=== PATIENT | male | born 1995 | race Caucasian/White ===

== ENCOUNTER 2016-09-19 18:18 | Emergency (ER) | payer BC ==
[2016-09-19 18:24] VITALS: BP 142/72; PULSE 97; RESP 16; TEMP 98.2
[2016-09-19] MEDS ORDERED: KETOROLAC 30 MG/ML 1 ML VIAL IVP STA (20:36)
[2016-09-19] MEDS ORDERED: SODIUM CHLORIDE 0.9% 1,000 ML IV STA (20:36)
[2016-09-19 21:22] LABS: Basophils # (A) 0.1 k/uL (0-0.2); Basophils % (A) 1 %; CH 29.5; CHCM 34.4; Eosinophils # (A) 0.3 k/uL (0-0.7); Eosinophils % (A) 3 %; HCT 51.1 % (39.0-53.0); HDW 2.61; HGB 17.1 gm/dL (13.0-17.5); Luc # (Auto) 0.25; Luc % (Auto) 2; Lymphocytes # (A) 2.8 k/uL (1.0-4.8); Lymphocytes % (A) 26 %; MCH 28.7 pg (25.0-35.0); MCHC 33.4 g/dL (31.0-37.0); Mean Platelet Volume 7.3; Monocytes # (A) 0.7 k/uL (0-1.0); Monocytes % (A) 7 %; Neutrophils # (A) 6.8 k/uL (1.3-7.7); Neutrophils % (A) 62 %; RBC 5.95 m/uL (4.30-5.90); WBC (Perox) 9.95
--- NOTE | 2016-09-19 21:34 | ED ---
Chest Pain HPI - General Chief Complaint: Chest Pain Stated Complaint: Chest Pain Time Seen by Provider: 09/19/16 20:28 Source: patient, RN notes reviewed, old records reviewed Mode of arrival: wheelchair Limitations: no limitations - History of Present Illness Initial Comments: Is 21-year-old male presents emergency Department with chief complaint of epigastric and lateral chest pain that will go off and on for the past 3 days. Patient states that he was evaluated by work and had EKG which showed abnormal heartbeat. Patient states that the pain will come and go. Patient states that the pain is unrelated to eating. - Related Data Home Medications Medication Instructions Recorded Confirmed No Known Home Medications [No 09/19/16 09/19/16 Known Home Medications] Allergies Allergy/AdvReac Type Severity Reaction Status Date / Time No Known Allergies Allergy Verified 09/19/16 20:33 Review of Systems ROS Statement: Those systems with pertinent positive or pertinent negative responses have been documented in the HPI. ROS Other: All systems not noted in ROS Statement are negative. Constitutional: Denies: fever, chills, weakness Eyes: Denies: eye pain ENT: Denies: ear pain Respiratory: Denies: cough, dyspnea Cardiovascular: Reports: chest pain. Denies: palpitations, dyspnea on exertion , orthopnea Endocrine: Denies: fatigue Gastrointestinal: Reports: abdominal pain, nausea, vomiting Genitourinary: Denies: urgency, dysuria Musculoskeletal: Denies: back pain Skin: Denies: rash, lesions Neurological: Denies: headache, weakness Psychiatric: Denies: depression Hematological/Lymphatic: Denies: easy bleeding EKG Findings - EKG Comments: EKG Findings:: EKG shows normal sinus rhythm with sinus arrhythmia. Ventricular rate 80 bpm. Verbal 160. Taoist 86 no seconds. QTC 348/4 on the face. No evidence of ST elevation or T-wave inversion. Past Medical History Past Medical History: No Reported History History of Any Multi-Drug Resistant Organisms: None Reported Past Surgical History: No Surgical Hx Reported Past Psychological History: No Psychological Hx Reported Smoking Status: Never smoker Past Alcohol Use History: Occasional Past Drug Use History: None Reported General Exam - General Exam Comments Initial Comments: Well-appearing 21-year-old male. No distress. Limitations: no limitations General appearance: alert, in no apparent distress Head exam: Present: atraumatic, normocephalic, normal inspection Eye exam: Present: normal appearance, PERRL, EOMI. Absent: scleral icterus, conjunctival injection, periorbital swelling ENT exam: Present: normal exam, mucous membranes moist Neck exam: Present: normal inspection. Absent: tenderness, meningismus, lymphadenopathy Respiratory exam: Present: normal lung sounds bilaterally. Absent: respiratory distress, wheezes, rales, rhonchi, stridor Cardiovascular Exam: Present: regular rate, normal rhythm, normal heart sounds. Absent: systolic murmur, diastolic murmur, rubs, gallop, clicks GI/Abdominal exam: Present: soft, tenderness (RUQ tenderness. ), normal bowel sounds. Absent: distended, guarding, rebound, rigid Extremities exam: Present: normal inspection, full ROM, normal capillary refill. Absent: tenderness, pedal edema, joint swelling, calf tenderness Back exam: Present: normal inspection Neurological exam: Present: alert, oriented X3, CN II-XII intact Psychiatric exam: Present: normal affect, normal mood Course Vital Signs 09/19/16 18:19 Temperature 98.2 F Pulse Rate 97 Respiratory 16 Rate Blood Pressure 142/72 O2 Sat by Pulse 96 Oximetry Chest Pain MDM - MDM This is 21-year-old male presents emergency room to complaint of occasional chest pain that shoots down below both ribs. Patient reports that this is been going off and on since Sunday. He reports that he's been nauseated a few times. Patient states the pain comes and goes. Unrelated to eating. Lab work was reviewed as negative for any acute process. Right upper quadrant ultrasound shows no evidence of gallbladder wall thickening or acute cholecystitis. EKG was also normal. Patient was informed of all these results. Discussed following up with primary care provider. Discussed also referral for GI, plan will comply. Return parameters were discussed. Disposition Clinical Impression: Atypical chest pain, Right upper quadrant pain Disposition: HOME SELF-CARE Condition: Good Instructions: Biliary Colic (ED) Additional Instructions: Patient denies to follow-up with her primary care provider. Return to the emergency department if any alarming signs or symptoms occur. Also follow-up with GI specialist for possible gallbladder study including a HIDA scan. Referrals: Yaritza Ang MD [STAFF PHYSICIAN] - 1-2 days Stefany Cade MD [STAFF PHYSICIAN] - 1-2 days Time of Disposition: 22:17
[2016-09-19 21:35] LABS: ALT 46 U/L (21-72); AST 29 U/L (17-59); Alkaline Phosphatase 93 U/L (38-126); Anion Gap 12 mmol/L; Blood Urea Nitrogen 14 mg/dL (9-20); Calcium 9.3 mg/dL (8.4-10.2); Carbon Dioxide 24 mmol/L (22-30); Chloride 105 mmol/L (98-107); Glucose 82 mg/dL (74-99); Magnesium 2.1 mg/dL (1.6-2.3); Non-African American GFR(MDRD) >60 (>60 ml/min/1.73 sqM); Potassium 4.2 mmol/L (3.5-5.1); Sodium 141 mmol/L (137-145); Total Bilirubin 0.6 mg/dL (0.2-1.3); Total Protein 7.3 g/dL (6.3-8.2)
[2016-09-19 21:37] LABS: Prothrombin Time 10.5 sec (9.0-12.0)
[2016-09-19 21:38] LABS: Partial Thromboplastin Time 23.8 sec (22.0-30.0)
[2016-09-19 21:44] LABS: Creatine Kinase 150 U/L (55-170)
[2016-09-19 21:57] LABS: Creatine Kinase MB 0.8 ng/mL (0.0-2.4); Troponin I <0.012 ng/mL (0.000-0.034)
--- NOTE | 2016-09-19 22:11 | XR ---
EXAMINATION TYPE: XR chest 2V DATE OF EXAM: 09/19/2016 9:12 PM COMPARISON: NONE HISTORY: Chest pain. TECHNIQUE: Frontal and lateral views of the chest are obtained. FINDINGS: There is no focal air space opacity, pleural effusion, or pneumothorax seen. The cardiac silhouette size is within normal limits. The osseous structures are intact. IMPRESSION: No acute cardiopulmonary process.
--- NOTE | 2016-09-19 22:13 | US ---
EXAMINATION TYPE: US gallbladder DATE OF EXAM: 09/19/2016 9:33 PM COMPARISON: NONE CLINICAL HISTORY: Chest/ abdominal pain. Nausea and vomiting. EXAM MEASUREMENTS: Liver Length: 15.7 cm Gallbladder Wall: 0.2 cm CBD: 0.4 cm Right Kidney: 10.9 x 4.7 x 4.8 cm Difficult/limited exam due to large amount of overlying bowel gas and patient body habitus Pancreas: Obscured by bowel gas Liver: Limited visualization due to overlying bowel gas, visualized portions are heterogeneous Gallbladder: No stones seen Evidence for sonographic Peterson's sign: No CBD: wnl as visualized, distal portion obscured by bowel gas Right Kidney: No hydronephrosis or masses seen Exam noted suboptimal per technologist due to patient's body habitus and overlying bowel gas. Pancrea s is suboptimally evaluated on images saved. Visualized portion of liver is heterogeneous without int rahepatic ductal dilatation. Evaluation for focal masses is suboptimal due to the heterogeneity. Gall bladder is seen without shadowing mobile gallstones. IMPRESSION: Suboptimal study but no gallstones or secondary ultrasound evidence for acute cholecystit is.
== END 2016-09-19 22:52 | disposition home or self-care (01) ==
LOC: EC 18:18
DX: R07.89 Other chest pain (principal); R10.11 Right upper quadrant pain
CPT/HCPCS: 99285; 96374; 36415; 85379; 80053; 82550; 82553; 83735; 84484; 85025; 85610; 85730; 71020; 76705; J1885; 93005

== ENCOUNTER 2017-07-08 00:19 | Emergency (ER) | payer BC ==
[2017-07-08] MEDS ORDERED: DIPH,PERTUS(ACELL)TETVAC-LF 0.5 ML VIAL IM ONE (01:07)
--- NOTE | 2017-07-08 01:17 | XR ---
EXAMINATION TYPE: XR finger LT DATE OF EXAM: 07/08/2017 COMPARISON: NONE HISTORY: Laceration and pain TECHNIQUE: 3 views FINDINGS: There is some soft tissue mild deformity at the anterior aspect of the IP joint of the thum b. There is no sign of a foreign body. I see no fracture nor dislocation. IMPRESSION: Soft tissue deformity. No fracture.
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
[2017-07-08 02:48] VITALS: BP 117/76; PULSE 76; RESP 18; TEMP 98.2
== END 2017-07-08 02:46 | disposition home or self-care (01) ==
LOC: EC 00:19
DX: S61.012A Laceration without foreign body of left thumb without damage to nail, initial encounter (principal); Z23 Encounter for immunization; Z79.899 Other long term (current) drug therapy; W26.0XXA Contact with knife, initial encounter
CPT/HCPCS: 12002; 90471; 90715; 99283

== ENCOUNTER 2017-07-09 20:58 | Emergency (ER) | payer BC ==
[2017-07-09] MEDS ORDERED: IBUPROFEN 600 MG TAB PO STA (22:04)
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
[2017-07-09 22:43] VITALS: BP 131/72; PULSE 88; RESP 20; TEMP 98
== END 2017-07-09 22:43 | disposition home or self-care (01) ==
LOC: EC 20:58
DX: S61.012D Laceration without foreign body of left thumb without damage to nail, subsequent encounter (principal); Z79.899 Other long term (current) drug therapy; X58.XXXD Exposure to other specified factors, subsequent encounter
CPT/HCPCS: 99283

== ENCOUNTER → 2023-06-22 | Outpatient (CLI) | payer BC ==
--- NOTE | 2023-06-23 17:39 | NM ---
EXAMINATION TYPE: NM hepatobiliary w CCK DATE OF EXAM: 06/22/2023 3:58 PM COMPARISON: None CLINICAL INDICATION:Male, 28 years old with history of R10.9 UN abdominal PAIN; TECHNIQUE: The patient was given 4.7 mCi of Technetium 99m-Mebrofenin as a radiotracer and multiple scintigraphic images were obtained of the abdomen. Gallbladder function was also assessed after the a dministration of ensure drink and additional scintigraphic images were obtained of the abdomen. A reg ion of interest was drawn over the gallbladder and a timing activity curve was generated. The gallbla dder ejection fraction was calculated. FINDINGS: Normal uptake of radiotracer was identified within the liver with excretion into the hepatic and comm on biliary ducts. There was normal progressive washout of the liver over the course of the study. Rad iotracer uptake within the gallbladder as well as small bowel activity was identified. Maximum calculated gallbladder ejection fraction is: 18% at 30 minutes (Normal gallbladder ejection fraction is > 35%) IMPRESSION: 1. Normal hepatobiliary scan. 2. Ejection fraction compatible with impaired gallbladder emptying and gallbladder dysfunction An ejection fraction of <33% (may be 35 to 40% depending on different protocols at different institut ions) after 60 min is indicative of impaired gallbladder emptying and gallbladder dysfunction.] Generally, an ejection fraction of less than 35% is considered abnormal (Fig.7-20). Unequivocally nor mal ejection fractions are greater than 50%. The normal mean is 75% with a standard deviation of abou t 20%. The normal emptying rate is about 6% per minute > 80% in 10 minutes hyperkinsia
== END | disposition home or self-care (01) ==
LOC: RADNMMAIN 12:54
PROVIDERS: ATTEND Family Medicine
DX: K82.8 Other specified diseases of gallbladder (principal)
CPT/HCPCS: 78227; A9537; J2805